=== PATIENT | male | born 1975 | race African-American/Black ===

== ENCOUNTER 2020-04-22 15:10 | Inpatient (IN) | payer OTHER ==
[2020-04-22] MEDS ORDERED: ACETAMINOPHEN 325 MG TABLET (FP) PO PRN ×2 (17:19)
[2020-04-22] MEDS ORDERED: NICOTINE POLACRILEX 2 MG GUM BUC PRN (17:19)
[2020-04-22] MEDS ORDERED: BISMUTH SUBSALICYLATE 524 MG/30 ML UD PO PRN (17:19)
[2020-04-22] MEDS ORDERED: MAG HYDROX/AL HYDROX/SIMETH 30 ML UNIT-DOSE CUP PO PRN (17:19)
[2020-04-22] MEDS ORDERED: METHOCARBAMOL 500 MG TABLET PO PRN (17:19)
[2020-04-22] MEDS ORDERED: MAGNESIUM HYDROX 2400MG/30ML ORAL SUSPENSION 30 ML CUP PO PRN (17:19)
[2020-04-22] MEDS ORDERED: ONDANSETRON *ODT* 4 MG TABLET SL PRN (17:19)
[2020-04-22] MEDS ORDERED: MENTHOL/PHENOL 1 EACH UD MM PRN (17:19)
[2020-04-22] MEDS ORDERED: IBUPROFEN 400 MG TABLET (FP) PO PRN (17:19)
[2020-04-22] MEDS ORDERED: MAGNESIUM CITRATE 300 ML BOTTLE PO PRN (17:19)
[2020-04-22] MEDS ORDERED: diazePAM 5 MG TABLET PO PRN (17:21)
[2020-04-22 17:35] VITALS: BMI 24.2
[2020-04-22] MEDS ORDERED: MELATONIN 5 MG TABLETS PO SCH (22:00)
[2020-04-23] MEDS ORDERED: diazePAM 5 MG TABLET ONE (00:31)
[2020-04-23] MEDS: diazePAM 5 MG TABLET PO SCH ×6 (00:33→22:22)
[2020-04-23] MEDS: THIAMINE HCL 100 MG TABLET (FP) PO SCH ×2 (00:33→22:22)
[2020-04-23 11:33] LABS: POTASSIUM 3.6 mmol/L (3.5-5.1)
[2020-04-23 11:37] LABS: CALCIUM 8.9 mg/dL (8.5-10.1)
[2020-04-23] MEDS: NICOTINE 7 MG/24 HOURS TOPICAL PATCH TD SCH (11:37)
[2020-04-23] MEDS: PRENATAL VITAMINS W/ FOLIC ACID TABLET (FP) PO SCH (11:37)
[2020-04-23 11:38] LABS: ALBUMIN 4.1 g/dl (3.4-5.0); BLOOD UREA NITROGEN 11.5 mg/dL (7-18)
[2020-04-23 11:40] LABS: HEMATOCRIT 38.7 % (35.4-49); HEMOGLOBIN 12.7 GM/dL (11.7-16.9); MCH 25.9 pg (25.7-33.7); MCHC 32.8 g/dl (32.0-35.9); MEAN CELL VOLUME 79.1 fl (80-96); MEAN PLT VOLUME 9.2 fl (7.5-11.1); PLATELET COUNT 267 K/MM3 (134-434); RBC 4.88 M/mm3 (4.00-5.60); RDW 20.1 % (11.9-15.9); WHITE BLOOD COUNT 3.4 K/mm3 (4.0-10.0)
[2020-04-23 11:41] LABS: CREATININE 0.9 mg/dL (0.55-1.3)
[2020-04-23 11:42] LABS: BILIRUBIN,TOTAL 1.3 mg/dL (0.2-1); TOT PROT 7.7 g/dl (6.4-8.2)
[2020-04-23] MEDS: MIRTAZAPINE 15 MG TABLET (FP) PO SCH (22:23)
[2020-04-24] MEDS: diazePAM 5 MG TABLET PO SCH ×2 (05:25→18:32)
[2020-04-24] MEDS: NICOTINE 7 MG/24 HOURS TOPICAL PATCH TD SCH (10:19)
[2020-04-24] MEDS: PRENATAL VITAMINS W/ FOLIC ACID TABLET (FP) PO SCH (10:19)
[2020-04-24] MEDS: MIRTAZAPINE 15 MG TABLET (FP) PO SCH (22:31)
[2020-04-24] MEDS: THIAMINE HCL 100 MG TABLET (FP) PO SCH (22:31)
[2020-04-25] MEDS ORDERED: diazePAM 5 MG TABLET PO ONE (06:00)
[2020-04-25] MEDS: PRENATAL VITAMINS W/ FOLIC ACID TABLET (FP) PO SCH (10:56)
[2020-04-25] MEDS: NICOTINE 7 MG/24 HOURS TOPICAL PATCH TD SCH (10:57)
[2020-04-25 17:56] VITALS: BP 138/96; PULSE 94; TEMP 97
== END 2020-04-25 17:56 | disposition other institution (70) | DRG 775 ==
LOC: YASAS 15:10 → Y3W 21:28 → UNDOADMIN 21:28 → Y6N 04-23 09:15
PROVIDERS: ADMIT Allergy & Immunology; ATTEND Allergy & Immunology
PROC: HZ2ZZZZ Detoxification Services for Substance Abuse Treatment (ICD-10-PCS; principal; 2020-04-23)
DX: F10.230 Alcohol dependence with withdrawal, uncomplicated (principal); F17.210 Nicotine dependence, cigarettes, uncomplicated; F19.282 Other psychoactive substance dependence with psychoactive substance-induced sleep disorder; F19.280 Other psychoactive substance dependence with psychoactive substance-induced anxiety disorder; F19.24 Other psychoactive substance dependence with psychoactive substance-induced mood disorder; F32.9 Major depressive disorder, single episode, unspecified; R21 Rash and other nonspecific skin eruption; Z62.810 Personal history of physical and sexual abuse in childhood
CPT/HCPCS: 36415; 80053; 85027; 86780; C9803; U0003

== ENCOUNTER 2020-04-25 17:02 | Inpatient (IN) | payer OTHER ==
[~2020-04-25 17:02] MED LIST: ACETAMINOPHEN 325 MG TABLET (FP) PO PRN; IBUPROFEN 400 MG TABLET (FP) PO PRN; LOPERAMIDE HCL 2 MG CAPSULE PO PRN; MAG HYDROX/AL HYDROX/SIMETH 30 ML UNIT-DOSE CUP PO PRN; MAGNESIUM CITRATE 300 ML BOTTLE PO PRN; MAGNESIUM HYDROX 2400MG/30ML ORAL SUSPENSION 30 ML CUP PO PRN; guaiFENesin 200 MG/10 ML 10 ML UNIT-DOSE CUPS PO PRN
[2020-04-25] MEDS: MELATONIN 5 MG TABLETS PO SCH (22:10)
[2020-04-25] MEDS: MIRTAZAPINE 15 MG TABLET (FP) PO SCH (22:11)
[2020-04-25] MEDS: THIAMINE HCL 100 MG TABLET (FP) PO SCH (22:11)
[2020-04-26] MEDS: PRENATAL VITAMINS W/ FOLIC ACID TABLET (FP) PO SCH (09:34)
[2020-04-26] MEDS: P-EPHED 60MG/TRIPROLIDI 2.5MG TABLET PO PRN (09:35)
[2020-04-26] MEDS ORDERED: NICOTINE POLACRILEX 2 MG GUM BUC PRN (11:49)
[2020-04-26] MEDS ORDERED: FLU VACCINE (FLULAVAL) PF 60 MCG/0.5 ML SYRINGE 2020-2021 IM ONE (12:00)
[2020-04-26] MEDS: NICOTINE 14 MG/24 HOURS TOPICAL PATCH TD SCH (13:50)
[2020-04-26] MEDS: MIRTAZAPINE 15 MG TABLET (FP) PO SCH (21:20)
[2020-04-26] MEDS: MELATONIN 5 MG TABLETS PO SCH (21:21)
[2020-04-26] MEDS: THIAMINE HCL 100 MG TABLET (FP) PO SCH (21:21)
[2020-04-27] MEDS: NICOTINE 14 MG/24 HOURS TOPICAL PATCH TD SCH (09:36)
[2020-04-27] MEDS: PRENATAL VITAMINS W/ FOLIC ACID TABLET (FP) PO SCH (09:36)
[2020-04-27] MEDS: MIRTAZAPINE 15 MG TABLET (FP) PO SCH (21:11)
[2020-04-27] MEDS: P-EPHED 60MG/TRIPROLIDI 2.5MG TABLET PO PRN (21:13)
[2020-04-27] MEDS: THIAMINE HCL 100 MG TABLET (FP) PO SCH (21:13)
[2020-04-27] MEDS: MELATONIN 5 MG TABLETS PO SCH (21:13)
[2020-04-28] MEDS: PRENATAL VITAMINS W/ FOLIC ACID TABLET (FP) PO SCH (09:55)
[2020-04-28] MEDS: NICOTINE 14 MG/24 HOURS TOPICAL PATCH TD SCH (09:55)
[2020-04-28] MEDS: THIAMINE HCL 100 MG TABLET (FP) PO SCH (21:39)
[2020-04-28] MEDS: P-EPHED 60MG/TRIPROLIDI 2.5MG TABLET PO PRN (21:40)
[2020-04-28] MEDS: MIRTAZAPINE 15 MG TABLET (FP) PO SCH (21:40)
[2020-04-28] MEDS: MELATONIN 5 MG TABLETS PO SCH (21:41)
[2020-04-29] MEDS: PRENATAL VITAMINS W/ FOLIC ACID TABLET (FP) PO SCH (09:50)
[2020-04-29] MEDS: NICOTINE 14 MG/24 HOURS TOPICAL PATCH TD SCH (09:50)
[2020-04-29] MEDS: P-EPHED 60MG/TRIPROLIDI 2.5MG TABLET PO PRN ×2 (09:51→21:13)
[2020-04-29] MEDS: MELATONIN 5 MG TABLETS PO SCH (21:12)
[2020-04-29] MEDS: MIRTAZAPINE 15 MG TABLET (FP) PO SCH (21:12)
[2020-04-29] MEDS: THIAMINE HCL 100 MG TABLET (FP) PO SCH (21:12)
[2020-04-30] MEDS: PRENATAL VITAMINS W/ FOLIC ACID TABLET (FP) PO SCH (09:32)
[2020-04-30] MEDS: NICOTINE 14 MG/24 HOURS TOPICAL PATCH TD SCH (09:32)
[2020-04-30] MEDS: MIRTAZAPINE 15 MG TABLET (FP) PO SCH (21:23)
[2020-04-30] MEDS: MELATONIN 5 MG TABLETS PO SCH (21:23)
[2020-04-30] MEDS: THIAMINE HCL 100 MG TABLET (FP) PO SCH (21:23)
[2020-04-30] MEDS: P-EPHED 60MG/TRIPROLIDI 2.5MG TABLET PO PRN (21:25)
[2020-05-01] MEDS: NICOTINE 14 MG/24 HOURS TOPICAL PATCH TD SCH (09:49)
[2020-05-01] MEDS: PRENATAL VITAMINS W/ FOLIC ACID TABLET (FP) PO SCH (09:49)
[2020-05-01] MEDS: THIAMINE HCL 100 MG TABLET (FP) PO SCH (21:28)
[2020-05-01] MEDS: MELATONIN 5 MG TABLETS PO SCH (21:28)
[2020-05-01] MEDS: MIRTAZAPINE 15 MG TABLET (FP) PO SCH (21:28)
[2020-05-01] MEDS: P-EPHED 60MG/TRIPROLIDI 2.5MG TABLET PO PRN (21:29)
[2020-05-02] MEDS: NICOTINE 14 MG/24 HOURS TOPICAL PATCH TD SCH (09:57)
[2020-05-02] MEDS: PRENATAL VITAMINS W/ FOLIC ACID TABLET (FP) PO SCH (09:57)
[2020-05-02] MEDS: MELATONIN 5 MG TABLETS PO SCH (21:15)
[2020-05-02] MEDS: THIAMINE HCL 100 MG TABLET (FP) PO SCH (21:15)
[2020-05-02] MEDS: MIRTAZAPINE 15 MG TABLET (FP) PO SCH (21:15)
[2020-05-02] MEDS: P-EPHED 60MG/TRIPROLIDI 2.5MG TABLET PO PRN (21:15)
[2020-05-03] MEDS: NICOTINE 14 MG/24 HOURS TOPICAL PATCH TD SCH (09:55)
[2020-05-03] MEDS: PRENATAL VITAMINS W/ FOLIC ACID TABLET (FP) PO SCH (09:56)
[2020-05-03] MEDS: MELATONIN 5 MG TABLETS PO SCH (21:13)
[2020-05-03] MEDS: THIAMINE HCL 100 MG TABLET (FP) PO SCH (21:13)
[2020-05-03] MEDS: MIRTAZAPINE 15 MG TABLET (FP) PO SCH (21:13)
[2020-05-03] MEDS: P-EPHED 60MG/TRIPROLIDI 2.5MG TABLET PO PRN (21:14)
[2020-05-04] MEDS: NICOTINE 14 MG/24 HOURS TOPICAL PATCH TD SCH (10:29)
[2020-05-04] MEDS: PRENATAL VITAMINS W/ FOLIC ACID TABLET (FP) PO SCH (10:29)
[2020-05-04] MEDS: THIAMINE HCL 100 MG TABLET (FP) PO SCH (21:22)
[2020-05-04] MEDS: MELATONIN 5 MG TABLETS PO SCH (21:22)
[2020-05-04] MEDS: MIRTAZAPINE 15 MG TABLET (FP) PO SCH (21:22)
[2020-05-04] MEDS: P-EPHED 60MG/TRIPROLIDI 2.5MG TABLET PO PRN (21:24)
[2020-05-05] MEDS: PRENATAL VITAMINS W/ FOLIC ACID TABLET (FP) PO SCH (10:07)
[2020-05-05] MEDS: NICOTINE 14 MG/24 HOURS TOPICAL PATCH TD SCH (10:07)
[2020-05-05] MEDS: P-EPHED 60MG/TRIPROLIDI 2.5MG TABLET PO PRN (21:24)
[2020-05-05] MEDS: MELATONIN 5 MG TABLETS PO SCH (21:24)
[2020-05-05] MEDS: THIAMINE HCL 100 MG TABLET (FP) PO SCH (21:24)
[2020-05-05] MEDS: MIRTAZAPINE 15 MG TABLET (FP) PO SCH (21:25)
[2020-05-06] MEDS: NICOTINE 14 MG/24 HOURS TOPICAL PATCH TD SCH (10:06)
[2020-05-06] MEDS: PRENATAL VITAMINS W/ FOLIC ACID TABLET (FP) PO SCH (10:06)
[2020-05-06] MEDS: THIAMINE HCL 100 MG TABLET (FP) PO SCH (21:19)
[2020-05-06] MEDS: MELATONIN 5 MG TABLETS PO SCH (21:19)
[2020-05-06] MEDS: P-EPHED 60MG/TRIPROLIDI 2.5MG TABLET PO PRN (21:20)
[2020-05-06] MEDS: MIRTAZAPINE 15 MG TABLET (FP) PO SCH (21:21)
[2020-05-07] MEDS: PRENATAL VITAMINS W/ FOLIC ACID TABLET (FP) PO SCH (10:20)
[2020-05-07] MEDS: NICOTINE 14 MG/24 HOURS TOPICAL PATCH TD SCH (10:21)
[2020-05-07] MEDS: MELATONIN 5 MG TABLETS PO SCH (21:08)
[2020-05-07] MEDS: THIAMINE HCL 100 MG TABLET (FP) PO SCH (21:08)
[2020-05-07] MEDS: P-EPHED 60MG/TRIPROLIDI 2.5MG TABLET PO PRN (21:08)
[2020-05-07] MEDS: MIRTAZAPINE 15 MG TABLET (FP) PO SCH (21:09)
[2020-05-08] MEDS: PRENATAL VITAMINS W/ FOLIC ACID TABLET (FP) PO SCH (10:02)
[2020-05-08] MEDS: NICOTINE 14 MG/24 HOURS TOPICAL PATCH TD SCH (10:02)
[2020-05-08] MEDS: THIAMINE HCL 100 MG TABLET (FP) PO SCH (21:52)
[2020-05-08] MEDS: MIRTAZAPINE 15 MG TABLET (FP) PO SCH (21:52)
[2020-05-08] MEDS: P-EPHED 60MG/TRIPROLIDI 2.5MG TABLET PO PRN (21:52)
[2020-05-08] MEDS: MELATONIN 5 MG TABLETS PO SCH (21:53)
[2020-05-09] MEDS: PRENATAL VITAMINS W/ FOLIC ACID TABLET (FP) PO SCH (09:47)
[2020-05-09] MEDS: NICOTINE 14 MG/24 HOURS TOPICAL PATCH TD SCH (09:47)
[2020-05-09] MEDS: MELATONIN 5 MG TABLETS PO SCH (21:24)
[2020-05-09] MEDS: THIAMINE HCL 100 MG TABLET (FP) PO SCH (21:24)
[2020-05-09] MEDS: MIRTAZAPINE 15 MG TABLET (FP) PO SCH (21:24)
[2020-05-09] MEDS: P-EPHED 60MG/TRIPROLIDI 2.5MG TABLET PO PRN (21:26)
[2020-05-10 06:50] VITALS: BP 133/93; PULSE 96; TEMP 96
[2020-05-10] MEDS: NICOTINE 14 MG/24 HOURS TOPICAL PATCH TD SCH (10:06)
[2020-05-10] MEDS: PRENATAL VITAMINS W/ FOLIC ACID TABLET (FP) PO SCH (10:06)
== END 2020-05-10 10:25 | disposition home or self-care (01) | DRG 772 ==
LOC: YASAS 17:02 → Y5N 17:03 → Y3E 04-30 16:28
PROVIDERS: ADMIT Allergy & Immunology; ATTEND Allergy & Immunology
PROC: HZ42ZZZ Group Counseling for Substance Abuse Treatment, Cognitive-Behavioral (ICD-10-PCS; principal; 2020-04-25)
DX: F10.20 Alcohol dependence, uncomplicated (principal); F17.210 Nicotine dependence, cigarettes, uncomplicated
CPT/HCPCS: C9803; G0008; Q2036; U0003